=== PATIENT | male | born 1950 | race Caucasian/White ===

== ENCOUNTER 2017-01-29 08:28 | Emergency (ER) | payer OTHER ==
[~2017-01-29] VITALS: Ht 177.8 cm; Wt 129.3 kg
--- NOTE | ~2017-01-29 | EKG ---
[address] [address] ELECTROCARDIOGRAM REPORT Name: ARIEL CASTANON JR [facility] [id number] Admission: 01/29/17 Attend Phys: Discharge: 01/29/17 Date of : 50 Report #: [id number] THIS REPORT FOR: //name// [facility] ED Test Date: 2017-01-29 Test Time: 09:08:31 Pat Name: ARIEL CASTANON Department: Room: Gender: M Email Developer: magnus : 1950 Requested By: Dago Medel Order Number: [id number] MD: Ivan Joe Measurements Intervals [place] Rate: 69 P: 46 OH: 255 QRS: 35 QRSD: 118 T: 73 QT: 399 QTc: 428 Interpretive Statements Sinus rhythm Prolonged OH interval Nonspecific intraventricular conduction delay No previous ECG available for comparison Electronically Signed On 01-29-2017 11:12:18 CDT by Ivan Joe [email or web address] <ELECTRONICALLY SIGNED> By: Ivan Joe MD 01/29/17 1112 [id number] Ivan Joe MD /EPI
[~2017-01-29 08:28] MED LIST: ACETAMINOPHEN325 M1 PO; ASPIRIN EC81 M1 PO; ASPIRIN325 PO; ATORVASTATIN CA40 MG PO; B-100 COMPLEX1 EAC1 PO; BENICAR HCT 401 EAC1 PO; BENICAR20 MG PO; BYSTOLIC 5 MG5 M1 PO; BYSTOLIC 5 MG5 MG PO; CENTRUM SILVER1 EAC2 PO; ERYTHROMYCIN250 MG PO; FELODIPINE ER10 MG PO; FISH OIL + VIT1 EACH PO; FISH OIL 1,001000 M2 PO; FISH OIL 1,001000 MG PO; FLOVENT DISKUS50 MCG IH; GLUMETZA1000 PO; HUMULINR100; HUMULINU500; IMDUR 30 MG TAB30 M1 PO; KLOR-CON 1010 MEQ PO; LASIX 40 MG TAB40 M1 PO; LASIX 40 MG TAB40 M2 PO; METFORMIN HCL500 MG PO; MULTI-VITAMIN1 EAC5 PO; NORCO 5-325 TA1 EACH PO; PEPCID20 MG PO; POTASSIUM20 PO; PRILOSEC40 MG PO; PROTONIX40 M4 PO; RANEXA1000 MG PO; VITAMIN B-1100 M1 PO; VITAMIN D10000 UNIT PO; VYTORIN 10-401 EACH PO; ZETIA10 MG PO
[2017-01-29 09:24] LABS: ABSOLUTE NEUTROPHILS 5.2 thou/uL (1.4-8.2); ANION GAP 15 mmol/L (7-16); BASOPHILS 0.7 % (0.0-2.0); BUN 35 mg/dL (7-18); CALCIUM 9.5 mg/dL (8.5-10.1); CHLORIDE 105 mmol/L (98-107); CO2 22 mmol/L (21-32); CREATININE 2.2 mg/dL (0.7-1.3); GLUCOSE 176 mg/dL (74-106); HEMATOCRIT 39.3 % (42.0-52.0); HEMOGLOBIN 12.9 gm/dL (14.0-18.0); MANUAL DIFF NO; MCH 31.2 pg (26.0-34.0); MCHC 32.9 g/dL (28.0-37.0); MCV 95.1 fL (80.0-100.0); MONOCYTES 7.5 % (1.0-8.0); PLATELET COUNT 266 thou/uL (150-400); POLYS 64.8 % (36.0-66.0); RBC 4.13 mil/uL (4.50-6.00); RDW 15.5 % (10.5-14.5); SODIUM 142 mmol/L (136-145); WBC 8.1 thou/uL (4.0-11.0)
[2017-01-29 09:36] LABS: NT-PRO BRAIN NAT PEPTIDE 219 pg/mL (<300); TROPONIN-I < 0.04 ng/mL (<0.04-0.07)
[2017-01-29] MEDS ORDERED: PROTONIX40 MG PO (09:55)
== END 2017-01-29 10:36 | disposition home or self-care (01) ==
LOC: ER 08:28
PROVIDERS: Emergency Medicine
DX: R13.19 Other dysphagia (principal); E11.8 Type 2 diabetes mellitus with unspecified complications; Z79.4 Long term (current) use of insulin; E78.5 Hyperlipidemia, unspecified; I10 Essential (primary) hypertension; Z95.5 Presence of coronary angioplasty implant and graft; Z95.1 Presence of aortocoronary bypass graft; I25.2 Old myocardial infarction; Z85.828 Personal history of other malignant neoplasm of skin; Z91.048 Other nonmedicinal substance allergy status; F17.210 Nicotine dependence, cigarettes, uncomplicated; F10.99 Alcohol use, unspecified with unspecified alcohol-induced disorder

== ENCOUNTER → 2019-07-10 | Outpatient (CLI) | payer OTHER ==
[~2019-07-10] VITALS: Ht 177.8 cm; Wt 134.7 kg
[~2019-07-10] MED LIST changes: +CLARITIN10 MG PO; +LIPITOR80 MG PO; +OLMESARTAN-HCT1 EAC1 PO; +PLAVIX 75 MG TA75 M1 PO; +PROTONIX40 MG PO; +TRAMADOL 50 MG50 MG PO; +VITAMIN D3400 UNIT PO; +ZANTAC 150MG T150 MG PO
[2019-07-10 08:39] VITALS: BP 147/60
[2019-07-10 08:44] LABS: HEMATOCRIT 41.3 % (42.0-52.0); HEMOGLOBIN 13.6 gm/dL (14.0-18.0); MCH 31.7 pg (26.0-34.0); MCHC 33.1 g/dL (28.0-37.0); MCV 95.7 fL (80.0-100.0); RBC 4.31 mil/uL (4.50-6.00); RDW 14.1 % (10.5-14.5)
--- NOTE | 2019-07-10 08:49 | NUR ---
250 BOLUS NS GIVEN PER ORDER, THEN AT 125/HR
[2019-07-10 09:03] LABS: CALCIUM 9.6 mg/dL (8.5-10.1); CREATININE 1.8 mg/dL (0.7-1.3); POTASSIUM 4.1 mmol/L (3.5-5.1)
== END | disposition home or self-care (01) ==
LOC: CATH 07:51
PROVIDERS: Nuclear Medicine Nuclear Cardiology
DX: I70.212 Atherosclerosis of native arteries of extremities with intermittent claudication, left leg (principal); I70.1 Atherosclerosis of renal artery; I10 Essential (primary) hypertension; I25.10 Atherosclerotic heart disease of native coronary artery without angina pectoris; M79.605 Pain in left leg; M79.604 Pain in right leg; E11.9 Type 2 diabetes mellitus without complications; K21.9 Gastro-esophageal reflux disease without esophagitis; E78.5 Hyperlipidemia, unspecified; I25.2 Old myocardial infarction; Z79.4 Long term (current) use of insulin; Z90.49 Acquired absence of other specified parts of digestive tract; Z98.890 Other specified postprocedural states; Z95.1 Presence of aortocoronary bypass graft; Z95.5 Presence of coronary angioplasty implant and graft; Z87.891 Personal history of nicotine dependence; Z88.8 Allergy status to other drugs, medicaments and biological substances; Z79.82 Long term (current) use of aspirin; Z79.899 Other long term (current) drug therapy

== ENCOUNTER → 2019-07-15 | Outpatient (CLI) | payer OTHER ==
[~2019-07-15] VITALS: Ht 177.8 cm; Wt 133.8 kg
[2019-07-15 08:32] VITALS: BP 161/57
[2019-07-15 08:34] LABS: HEMATOCRIT 41.1 % (42.0-52.0); HEMOGLOBIN 13.6 gm/dL (14.0-18.0); MCH 31.7 pg (26.0-34.0); MCHC 33.1 g/dL (28.0-37.0); MCV 95.8 fL (80.0-100.0); RBC 4.29 mil/uL (4.50-6.00); RDW 14.1 % (10.5-14.5); WBC 7.2 thou/uL (4.0-11.0)
[2019-07-15 08:42] LABS: CALCIUM 9.6 mg/dL (8.5-10.1); CREATININE 1.7 mg/dL (0.7-1.3); POTASSIUM 4.1 mmol/L (3.5-5.1)
[2019-07-15 14:50] VITALS: BP 163/68
[2019-07-15 15:50] VITALS: BP 139/65
--- NOTE | 2019-07-15 16:17 | NUR ---
PT CARE ASSUMED APPROX 1445. TRANSFERED FROM IR S/P RLE STENTS X3 FOR LEFT GROIN MONITORING. NS IVF RUNNING UNTIL DISCHARGE PER DR ORDERS. PT EDUATED ON POST STENT PLACEMENT BY IR PER IR NURSE. VSS. 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 FAMILY AT BEDSIDE. POST CATH ASSESSMENT INTERVENTION WILL BE INITIATED TO COMPLETE POST PROCEDURE VS AND GROIN SITE ASSESSMENTS. HEMOSTASIS WAS AT 1200 SO NSG INTEVENTION ASSESSMENTS WILL START FROM THAT TIME. PT DENIES PAIN AND SOA.
[2019-07-15 16:50] VITALS: BP 135/78
[2019-07-15 17:50] VITALS: BP 151/67
--- NOTE | 2019-07-15 18:17 | NUR ---
PT LEFT GROIN SITE HAS MINIMAL PINK DRIED DRAINAGE. NO HEMATOMA NOTED. VSS. STEADY GAIT. PT HAS COMPLETED ORDERED NS INFUSION. DISCHARGE PAPERWORK SIGNED. IV OUT, TELE OFF. STAFF TO ESCORT PT OUT TIMELY.
== END ==
LOC: CATH 07:58
PROVIDERS: Nuclear Medicine Nuclear Cardiology
DX: M79.604 Pain in right leg (principal); I70.211 Atherosclerosis of native arteries of extremities with intermittent claudication, right leg; I10 Essential (primary) hypertension; E11.51 Type 2 diabetes mellitus with diabetic peripheral angiopathy without gangrene; I25.10 Atherosclerotic heart disease of native coronary artery without angina pectoris; E78.00 Pure hypercholesterolemia, unspecified; I25.2 Old myocardial infarction; Z87.891 Personal history of nicotine dependence; Z82.49 Family history of ischemic heart disease and other diseases of the circulatory system; Z95.1 Presence of aortocoronary bypass graft; Z79.4 Long term (current) use of insulin; Z79.899 Other long term (current) drug therapy; Z85.828 Personal history of other malignant neoplasm of skin; Z98.890 Other specified postprocedural states; Z98.52 Vasectomy status

== ENCOUNTER → 2019-10-23 | Outpatient (CLI) | payer OTHER | LOC: SJCVCINTER 07:54 | DX: I65.23 Occlusion and stenosis of bilateral carotid arteries (principal); I73.9 Peripheral vascular disease, unspecified; R94.31 Abnormal electrocardiogram [ECG] [EKG]; I25.10 Atherosclerotic heart disease of native coronary artery without angina pectoris; I12.9 Hypertensive chronic kidney disease with stage 1 through stage 4 chronic kidney disease, or unspecified chronic kidney disease; E11.22 Type 2 diabetes mellitus with diabetic chronic kidney disease; N18.3 Chronic kidney disease, stage 3 (moderate); Z95.1 Presence of aortocoronary bypass graft; Z82.49 Family history of ischemic heart disease and other diseases of the circulatory system; Z87.891 Personal history of nicotine dependence; Z72.89 Other problems related to lifestyle; Z79.4 Long term (current) use of insulin; Z79.899 Other long term (current) drug therapy ==

== ENCOUNTER → 2020-05-12 | Outpatient (CLI) | payer OTHER | LOC: SJCVCIMAG 09:47 | PROVIDERS: ATTEND Nuclear Medicine Nuclear Cardiology | DX: R94.31 Abnormal electrocardiogram [ECG] [EKG] (principal); I44.0 Atrioventricular block, first degree; I70.201 Unspecified atherosclerosis of native arteries of extremities, right leg; E11.22 Type 2 diabetes mellitus with diabetic chronic kidney disease; I12.9 Hypertensive chronic kidney disease with stage 1 through stage 4 chronic kidney disease, or unspecified chronic kidney disease; N18.3 Chronic kidney disease, stage 3 (moderate); E78.00 Pure hypercholesterolemia, unspecified; Z95.1 Presence of aortocoronary bypass graft ==

== ENCOUNTER → 2020-12-08 | Outpatient (CLI) | payer OTHER | LOC: SJCVCIMAG 09:53 | PROVIDERS: ATTEND Internal Medicine Cardiovascular Disease | DX: R94.31 Abnormal electrocardiogram [ECG] [EKG] (principal); I70.201 Unspecified atherosclerosis of native arteries of extremities, right leg; I65.23 Occlusion and stenosis of bilateral carotid arteries; R00.0 Tachycardia, unspecified; I48.92 Unspecified atrial flutter; I25.10 Atherosclerotic heart disease of native coronary artery without angina pectoris; I25.5 Ischemic cardiomyopathy; I73.9 Peripheral vascular disease, unspecified; E11.22 Type 2 diabetes mellitus with diabetic chronic kidney disease; I12.9 Hypertensive chronic kidney disease with stage 1 through stage 4 chronic kidney disease, or unspecified chronic kidney disease; N18.30 Chronic kidney disease, stage 3 unspecified; E78.5 Hyperlipidemia, unspecified; G47.30 Sleep apnea, unspecified; Z86.16 Personal history of COVID-19; Z87.891 Personal history of nicotine dependence; Z79.82 Long term (current) use of aspirin; Z79.899 Other long term (current) drug therapy; Z79.4 Long term (current) use of insulin; Z95.1 Presence of aortocoronary bypass graft ==

== ENCOUNTER → 2020-12-18 | Outpatient (CLI) | payer OTHER | LOC: SJCVCIMAG 07:39 | PROVIDERS: ATTEND Nuclear Medicine Nuclear Cardiology | DX: I44.0 Atrioventricular block, first degree (principal); I49.3 Ventricular premature depolarization; I25.10 Atherosclerotic heart disease of native coronary artery without angina pectoris; I48.91 Unspecified atrial fibrillation; I73.9 Peripheral vascular disease, unspecified; I25.2 Old myocardial infarction; Z79.899 Other long term (current) drug therapy ==